=== PATIENT | female | born 1975 | race African-American/Black ===

== ENCOUNTER 2022-05-22 14:08 | Emergency (ER) | payer OTHER ==
[~2022-05-22] VITALS: Ht 152.4 cm; Wt 80.0 kg
[2022-05-22 14:12] VITALS: BP 134/83
[2022-05-22 16:59] LABS: CHLORIDE 106 mEq/L (98-107)
[2022-05-22 17:02] LABS: BASOPHILS % 1.4 % (0.0-2.0); EOSINOPHILS % 0.8 % (0.0-5.0); HEMATOCRIT. 24.2 % (36.0-48.0); HEMOGLOBIN. 7.1 g/dL (12.0-16.0); MEAN CORPUSCULAR VOLUME 61.2 fL (81.0-99.0); MEAN PLATELET VOLUME 8.1 fl (7.4-10.4); NEUTROPHILS % 40.8 % (40.0-76.0); PLATELET 480 x1000/uL (130-400); RED BLOOD CELL COUNT 3.95 mill/uL (4.2-5.4); RED CELL DISTRIBUTION WIDTH 17.6 % (11.6-14.6)
[2022-05-22 18:10] LABS: PLATELET ESTIMATE INCREASED
[2022-05-22] MEDS ORDERED: VITA250012 MT (18:53)
== END 2022-05-22 18:56 | disposition home or self-care (01) ==
LOC: ER 14:32
DX: D64.9 Anemia, unspecified (principal); I49.9 Cardiac arrhythmia, unspecified
CPT/HCPCS: 36415; 80053; 85025; 86850; 86900; 93005; 99284